=== PATIENT | female | born 1980 | race African-American/Black ===

== ENCOUNTER 2017-08-22 13:37 | Emergency (ER) | payer SELFPAY, OTHER | END 2017-08-22 14:28 | disposition home or self-care (01) | LOC: ER 13:37 | DX: S09.8XXA Other specified injuries of head, initial encounter (principal); X58.XXXA Exposure to other specified factors, initial encounter; Y93.89 Activity, other specified; Y99.8 Other external cause status; Y92.89 Other specified places as the place of occurrence of the external cause | CPT/HCPCS: 99283 ==